=== PATIENT | male | born 1990 | race Caucasian/White ===

== ENCOUNTER 2017-10-28 22:48 | Emergency (ER) | payer OTHER | END 2017-10-29 04:17 | disposition home or self-care (01) | LOC: FTE 22:48 | DX: S16.1XXA Strain of muscle, fascia and tendon at neck level, initial encounter (principal); S30.810A Abrasion of lower back and pelvis, initial encounter; Y04.0XXA Assault by unarmed brawl or fight, initial encounter | CPT/HCPCS: 99283; Z7502 ==